=== PATIENT | female | born 1955 | race Caucasian/White ===

== ENCOUNTER → 2016-04-10 | Day surgery (SDC) | payer OTHER, MEDICAID ==
[~2016-04-10] MED LIST: ATOR20TA PO; DRIS50002 PO; GLIP5 PO; HYDR-2768 PO; LACTATED RINGER'S 1000 ML INJ 1,000 ML ONE; LEVEMIR SQ; LISI40TA PO; LORTA5 PO; METF500 PO; NICO7T TD; NOVO7030P2 SQ; PROM25SU8 PO; PROPOFOL 200 MG/20 ML AMP IV ONE; SERT-129 PO; ZOFR4TAB3 SL; ZOLP10TA3 PO
== END | disposition home or self-care (01) ==
LOC: ESDC 08:04
PROVIDERS: ATTEND Internal Medicine Gastroenterology
DX: Z12.11 Encounter for screening for malignant neoplasm of colon (principal); D12.5 Benign neoplasm of sigmoid colon; K21.9 Gastro-esophageal reflux disease without esophagitis; K29.70 Gastritis, unspecified, without bleeding; E11.9 Type 2 diabetes mellitus without complications; Z79.4 Long term (current) use of insulin
CPT/HCPCS: 00740; 00810; 43239; 45385; 82948; 88305; 88312; J3010; J7120